=== PATIENT | male | born 1985 | race Caucasian/White ===

== ENCOUNTER 2020-01-11 07:57 | Emergency (ER) | payer BC, SELFPAY ==
--- NOTE | ~2020-01-11 | CT_ITS ---
EXAMINATION: CT thoracic spine wo con EXAM DATE: 01/11/2020 10:35 INDICATION: Pain so severe patient cannot walk. Pain radiates down left leg TECHNIQUE: Spiral CT thoracic spine wo con was performed without contrast. Axial, coronal and sagit emily images were reviewed. The dose-length product (DLP) for this examination was 1320.66 mGy-cm. Th e exposure was tailored according to patient size (auto mA exposure control), and iterative reconstru ction (ASIR) was used as additional dose reduction technique. There is no prior study for comparison . FINDINGS: The thoracic spinal canal and neural foramen are widely patent. The vertebral bodies are al igned in the AP dimension. Vertebral body and disc heights are well-maintained. Facet joints are unre markable. No endplate erosive change or paraspinal inflammation. Paraspinal musculature and soft tiss ues are unremarkable. Posterior portions of the lungs are clear. IMPRESSION: Normal CT thoracic spine. Reviewed, dictated and finalized at location B. IMPRESSION: Normal CT thoracic spine.
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
[2020-01-11 08:04] VITALS: BP 150/81; PULSE 75; RESP 20; TEMP 36.9; O2SAT 98
--- NOTE | 2020-01-11 08:04 | ED.BACK ---
HPI - Back Pain/Injury General Chief Complaint: Back Pain/Injury Stated Complaint: low back pain with left leg pain Time Seen by Provider: 01/11/20 08:04 Source: patient and family Mode of arrival: wheelchair Limitations: no limitations History of Present Illness HPI Narrative: Patient is a 34-year-old male who presents for evaluation of worsening chronic back pain. Patient states he has struggled with back pain since late August, reportedly initially always had pain in the left lower back radiating down into the left leg, worsening over the summer months and then saw a chiropractor, with then worsening pain on the right side as well. Pain originates in the middle back, travels down both buttocks into both lower legs. He reports pain with ambulation, he has been unable to walk today after slipping 2 days ago and then experiencing acutely worsened pain. Patient denies any fall, he did not strike his back on anything. He denies any saddle anesthesia, bowel or bladder incontinence. He has had no difficulty with urination. In the past, patient has acquired work notes for flareups of what he calls pinched nerves when he is able to rest and take anti-inflammatories his symptoms usually resolve on their own. He has never followed with a primary care physician or had any advanced imaging of his lower back. Patient states he has been dealing with back pain since high school. He denies any fever, chills, cough, congestion, chest pain, abdominal pain, nausea or vomiting. Related Data Allergies Allergy/AdvReac Type Severity Reaction Status Date / Time No Known Allergies Allergy Verified 01/11/20 08:16 Review of Systems Review of Systems: Narrative: CONSTITUTIONAL: Denies fever CARDIOVASCULAR: Denies chest pain RESPIRATORY: Denies cough or dyspnea. GASTROINTESTINAL: Denies abdominal pain SKIN: Denies rash MUSCULOSKELETAL: Reports back pain NEUROLOGIC: Denies headache PMFSH Past Medical History Medical History Chronic back pain Surgical History Surgical History (Updated 01/11/20 @ 08:18 by Sonal Vela MD) [place] teeth extracted Social History Social History (Updated 01/11/20 @ 08:18 by Sonal Vela MD) Smoking status: Current every day smoker Alcohol intake: current Substance use: never Gender identity (if verbalized by the patient): Male Exam Narrative: Exam Narrative: GENERAL: Awake, alert, conversant HEAD: Normocephalic, atraumatic. EYES: PERRLA and EOMI. ENT: Nares clear, no rhinorrhea or epistaxis. Mucous membranes moist. NECK: Supple. CHEST: No respiratory distress, breathing even and non labored HEART: Regular rate, sinus rhythm ABDOMEN:Non distended, non tender EXTREMITIES: Normal range of motion. Patient is able to flex and extend at the hips and knees and full range of motion without deficit. Intact distal sensation. EHL/FHL intact in both feet. DP pulses 2+ bilaterally. Posterior tibialis pulses 2+ bilaterally. Reflexes 2+ bilaterally. Reproducible pain with straight leg raise test bilaterally. Positive SI joint tenderness bilaterally. SKIN: Warm, dry, no rash. NEURO:No focal deficits. Alert and oriented x3 Course Vital Signs Vital signs: Vital Signs Temperature 36.9 C 01/11/20 08:04 Pulse Rate 75 01/11/20 08:04 Respiratory Rate 20 01/11/20 08:04 Blood Pressure 150/81 H 01/11/20 08:04 Pulse Oximetry 98 01/11/20 08:04 Temperature 36.9 C 01/11/20 08:04 Pulse Rate 75 01/11/20 08:04 Respiratory Rate 20 01/11/20 08:04 Blood Pressure 129/59 L 01/11/20 09:32 Pulse Oximetry 95 01/11/20 09:32 MDM - Back Pain/Injury MDM Narrative Medical decision making narrative: Given History and Exam the patient appears to be at low risk for Spinal Cord Compression Syndrome, Vertebral Malignancy/Mets, acute Spinal Fracture, Vertebral Osteomyelitis, Epidural Abscess, Infected or Obstructing Kidney Stone. Their
--- NOTE | 2020-01-11 08:25 | PC.NURSE ---
Patient in imaging.
[2020-01-11] MEDS: predniSONE 20 MG TABLET 60 MG PO (08:34)
[2020-01-11] MEDS: ACETAMINOPHEN 500 MG TABLET 1000 MG PO (08:34)
[2020-01-11] MEDS: diazePAM (*CRX) 5 MG TABLET PO (08:34)
[2020-01-11] MEDS: KETOROLAC (*BKC) 60 MG/2 ML VIAL 30 MG IM (08:34)
[2020-01-11 09:22] VITALS: O2SAT 80
[2020-01-11 09:30] VITALS: O2SAT 94
[2020-01-11 09:32] VITALS: BP 129/59; O2SAT 95
[2020-01-11] MEDS: oxyCODONE HCL (*CRX) 5 MG TAB IR PO (09:37)
[2020-01-11 11:35] VITALS: BP 130/78; PULSE 80; RESP 18; O2SAT 99
== END 2020-01-11 11:36 | disposition home or self-care (01) ==
PROVIDERS: Emergency Provider Emergency Medicine
DX: M54.41 Lumbago with sciatica, right side (principal); S39.012A Strain of muscle, fascia and tendon of lower back, initial encounter; F17.200 Nicotine dependence, unspecified, uncomplicated; M47.816 Spondylosis without myelopathy or radiculopathy, lumbar region; X58.XXXA Exposure to other specified factors, initial encounter
CPT/HCPCS: 72100; 72128; 96372; 99284; A9270; J1885; J7512